=== PATIENT | male | born 1975 | race Caucasian/White ===

== ENCOUNTER 2019-05-14 10:29 | Emergency (ER) | payer BC ==
[~2019-05-14] VITALS: Ht 172.7 cm; Wt 80.0 kg
[~2019-05-14 10:29] MED LIST: ASPI-817 PO; ATOR40TA68 PO; CARV3.1260 PO; GLIP5TAB13 PO; LISI10TA2 PO; METF100010 PO; NITR0.4T32 SL; TICA90TA PO; [UNRECOGNIZED DRUG - CODE] PO
[2019-05-14 10:36] VITALS: RESP 20; Ht 172.7 cm; Wt 80.0 kg
[2019-05-14 11:17] VITALS: BP 163/102; PULSE 73
== END 2019-05-14 11:17 | disposition home or self-care (01) ==
LOC: FTE 10:29
DX: I10 Essential (primary) hypertension (principal); E11.9 Type 2 diabetes mellitus without complications; Z79.82 Long term (current) use of aspirin; Z79.84 Long term (current) use of oral hypoglycemic drugs; Z87.891 Personal history of nicotine dependence
CPT/HCPCS: 99282